=== PATIENT | female | born 1950 | race Caucasian/White ===

== ENCOUNTER → 2016-07-17 | Outpatient (CLI) | payer OTHER ==
[~2016-07-17] MED LIST: ACET1TAB84 PO; ASPEC325 PO; ASPI-232 PO; B-COTAB18 PO; CHOL1000 PO; COEN1CAP7 PO; EZET10TA63 PO; HYDR12.55 PO; INSDGI SC; LSN40 PO; MULT-506 PO; NOVOLOG SQ; NVLGI SC; PYRI100T2 PO; RXC5 PO; S-AD1TAB6 PO; SPIR50TA2 PO; VITAMIN D PO; [UNRECOGNIZED DRUG - REMARK]
--- NOTE | 2016-07-17 17:07 | MAMMOGRAPHY REPORT ---
BILATERAL DIGITAL SCREENING MAMMOGRAM WITH CAD: 07/17/2016 CLINICAL HISTORY: Routine screening. Patient has no complaints. TECHNIQUE: Bilateral CC, MLO, repeat MLO views and exaggerated lateral views were obtained. Current study was also evaluated with a Computer Aided Detection (CAD) system. COMPARISON: Comparison is made to exams dated: 08/30/2013 mammogram - [facility] a nd 05/11/2008. BREAST COMPOSITION: There are scattered areas of fibroglandular density in both breasts. FINDINGS: No suspicious mass, architectural distortion or cluster of microcalcifications is seen. IMPRESSION: ACR BI-RADS CATEGORY 1: NEGATIVE There is no mammographic evidence of malignancy. A 1 year screening mammogram is recommended. The p atient will receive written notification of the results. Approximately 10% of breast cancers are not detected with mammography. A negative mammographic repor t should not delay biopsy if a clinically suggestive mass is present. Florecita Marcos M.D. ay/:07/17/2016 16:13:06 Concrete Handler: Mandy RAMIREZ(Watler)(Randall), [facility] letter sent: Normal 1/2 BI-RADS Code: ACR BI-RADS Category 1: Negative
== END | disposition home or self-care (01) ==
LOC: C.MAMM 14:22
PROVIDERS: ATTEND Family Medicine
DX: Z12.31 Encounter for screening mammogram for malignant neoplasm of breast (principal)

== ENCOUNTER → 2016-08-20 | Outpatient (CLI) | payer OTHER ==
[2016-08-20 12:27] LABS: BLOOD UREA NITROGEN 16 mg/dl (7-18); GLUCOSE 125 mg/dl (70-99)
[2016-08-20 12:28] LABS: ALT/SGPT 30 U/L (12-78); BUN/CREATININE RATIO 18.8 (10-20); CALCIUM 9.2 mg/dl (8.5-10.1); CARBON DIOXIDE 27 mmol/L (21-32); CHLORIDE 101 mmol/L (98-107); CHOLESTEROL 240 mg/dl (0-200); CREATININE 0.83 mg/dl (0.60-1.20); POTASSIUM 3.8 mmol/L (3.5-5.1); SODIUM 137 mmol/L (136-145); TRIGLYCERIDES 145 mg/dl (0-150); VERY LOW DENSITY LIPOPROT CALC 29 mg/dl
[2016-08-20 12:30] LABS: ALB/GLOB RATIO 1.2 (0.9-2); ALKALINE PHOSPHATASE 84 U/L (45-117); AST/SGOT 23 U/L (15-37); CHOLESTEROL/HDL RATIO 6.2; HDL CHOLESTEROL 39 mg/dl; LDL CHOLESTEROL CALCULATED 172 mg/dl
[2016-08-20 12:38] LABS: ESTIMATED AVERAGE GLUCOSE 157 mg/dl; HA1C FLAG Normal (Normal)
[2016-08-20 13:05] LABS: RATIO 23.2 mcg/mg (0-30.0)
--- NOTE | 2016-08-29 12:16 | CODING QUERY MEDICAL NECESSITY ---
SUPPORTING DIAGNOSIS NEEDED A supporting diagnosis is required for the test/procedure performed on this patient in order for us to be reimbursed by the patient's insurance. Please provide a supporting diagnosis for the following test/procedure listed below next to the test name along with your signature. *If there is no additional diagnosis for this patient that would support the following test/procedure please document that below next to the test/procedure. Test(s)/Procedure(s) that require a supporting diagnosis: * GLYCATED HEMOGLOBIN DIAGNOSIS: * DOS: 08/20/16 Provider Signature: Date: Thank you Sanjana Richter Health Information Management Once completed, please kindly fax back to [phone] For questions please call [phone]
== END | disposition home or self-care (01) ==
LOC: C.LABPVFM 08:10
PROVIDERS: ATTEND Family Medicine
DX: I10 Essential (primary) hypertension (principal); E78.5 Hyperlipidemia, unspecified; E55.9 Vitamin D deficiency, unspecified; E11.49 Type 2 diabetes mellitus with other diabetic neurological complication

== ENCOUNTER → 2016-10-25 | Outpatient (CLI) | payer OTHER ==
[~2016-10-25] VITALS: Ht 165.1 cm; Wt 133.2 kg
[2016-10-25 16:14] VITALS: BP 136/76; PULSE 79; Ht 165.1 cm; Wt 133.2 kg
== END | disposition home or self-care (01) ==
LOC: C.NEUR 14:54
PROVIDERS: ATTEND Physician Assistant
DX: G47.33 Obstructive sleep apnea (adult) (pediatric) (principal); E66.01 Morbid (severe) obesity due to excess calories

== ENCOUNTER → 2016-11-11 | Outpatient (CLI) | payer OTHER | END | disposition home or self-care (01) | LOC: C.LABSPEC 17:11 | PROVIDERS: ATTEND Nurse Practitioner Family | DX: N39.41 Urge incontinence (principal) ==

== ENCOUNTER → 2016-12-27 | Outpatient (CLI) | payer OTHER ==
[~2016-12-27] MED LIST changes: -SPIR50TA2 PO
[2016-12-27 12:59] LABS: ESTIMATED AVERAGE GLUCOSE 174 mg/dl; HA1C FLAG Normal (Normal)
== END | disposition home or self-care (01) ==
LOC: C.LABPVFM 08:17
PROVIDERS: ATTEND Nurse Practitioner Family
DX: E11.49 Type 2 diabetes mellitus with other diabetic neurological complication (principal)

== ENCOUNTER 2017-01-10 06:37 | Inpatient (IN) | payer OTHER ==
[2016-12-31 10:52] VITALS: BMI 48.0
--- NOTE | 2016-12-31 11:23 | PAT Medication Instructions ---
Service Date Dec 31, 2016. Current Home Medication List Aspirin (Aspir-81), 1 TAB PO QAM B-Complex Vitamins (Vitamin B Complex), 1 TAB PO QAM Cholecalciferol (Vitamin D3), 1 TAB PO QAM Coenzyme Q10 (Ubidecarenone) (Coq10), 200 MG PO QAM Ezetimibe (Zetia), 10 MG PO HS Hydrochlorothiazide (Hydrochlorothiazide), 12.5 MG PO QAM Insulin Aspart (Novolog), 15 UNITS SC QAM/NOON Insulin Glargine (Lantus), 35 UNITS SC HS Lisinopril (Lisinopril), 40 MG PO QAM Multivitamin (Multivitamin), 2 TAB PO QAM Pyridoxine Hcl (Vitamin B6), 100 MG PO QAM [Novolog], 20 UNITS SQ QPM Medication Instructions For Your Scheduled Surgery - Hold the following medications 2 weeks prior to surgery: Coenzyme Q10 (Ubidecarenone) (Coq10), 200 MG PO QAM - Hold the following medications the morning of surgery: Insulin Aspart (Novolog), 15 UNITS SC QAM/NOON Hydrochlorothiazide (Hydrochlorothiazide), 12.5 MG PO QAM Lisinopril (Lisinopril), 40 MG PO QAM Multivitamin (Multivitamin), 2 TAB PO QAM B-Complex Vitamins (Vitamin B Complex), 1 TAB PO QAM Cholecalciferol (Vitamin D3), 1 TAB PO QAM Pyridoxine Hcl (Vitamin B6), 100 MG PO QAM - Take the following medications the morning of surgery with a sip of water OTHERWISE NOTHING TO EAT OR DRINK AFTER MIDNIGHT: Aspirin (Aspir-81), 1 TAB PO QAM - Take the following medications as scheduled the night before surgery: [Novolog], 20 UNITS SQ QPM Insulin Glargine (Lantus), 39 UNITS SC HS Ezetimibe (Zetia), 10 MG PO HS If you have any questions please call us at [phone] or [phone] or [phone]
[2016-12-31 12:06] LABS: BASO % 0.5 %; BASO ABS # 0.03 K/uL (0-0.2); COMPLETE YES; EOS % 2.4 %; HEMATOCRIT 44.4 % (37-47); IG% 0.3 %; LYMPH ABS # 1.62 K/uL (1.2-3.4); MEAN CELL VOLUME 90.1 fL (80-100); MEAN CORPUSCULAR HEMOGLOBIN 29.4 pg (25-34); MEAN CORPUSCULAR HGB CONC 32.7 g/dl (32-36); MEAN PLATELET VOLUME 11.4 fL (7.4-10.4); MONO % 11.9 %; NEUT % 58.9 %; PLATELET COUNT 200 K/uL (130-400); RED BLOOD COUNT 4.93 M/uL (4.2-5.4); WHITE BLOOD COUNT 6.22 K/uL (4.8-10.8)
--- NOTE | 2016-12-31 12:07 | DIAGNOSTIC IMAGING REPORT ---
CHEST PREADMISSION(PA/LAT) CLINICAL HISTORY: PAT preoperative evaluation COMPARISON STUDY: 05/24/2015 FINDINGS: The bones soft tissues and hemidiaphragms are normal. The cardiomediastinal silhouette is normal. The lungs are clear. The pulmonary vasculature is normal. IMPRESSION: Negative chest. Electronically signed by: Mark Ybarra M.D. 12/31/2016 12:06 PM Dictated Date/Time: 12/31/2016 12:05 PM
[2016-12-31 12:15] LABS: PROTHROMBIN TIME (PATIENT) 10.7 SECONDS (9.0-12.0)
[2016-12-31 15:09] LABS: BUN/CREATININE RATIO 23.6 (10-20); CALCIUM 9.1 mg/dl (8.5-10.1); CREATININE 0.88 mg/dl (0.60-1.20); POTASSIUM 3.6 mmol/L (3.5-5.1)
[2016-12-31 15:21] LABS: URINE APPEARANCE CLEAR (CLEAR); URINE BILIRUBIN NEG (NEG); URINE COLOR DK YELLOW; URINE EPITHELIAL CELL AUTO >30 /lpf (0-5); URINE NITRITE NEG (NEG); URINE PH 6.5 (4.5-7.5); URINE SPECIFIC GRAVITY 1.023 (1.000-1.030); UROBILINOGEN NEG (NEG)
[2016-12-31 15:22] LABS: MANUAL MICROSCOPIC REQUIRED? NO; REVIEW REQ? NO
[~2017-01-10] VITALS: Ht 165.1 cm; Wt 132.0 kg
[~2017-01-10 06:37] MED LIST changes: -ACET1TAB84 PO; +ACETAMINOPHEN 500 MG TAB PO SCH; -ASPEC325 PO; +CEFAZOLIN 3000 MG/65 ML D5W 65 ML IV SCH; +FAMOTIDINE 20 MG TAB PO SCH; +GABAPENTIN 300 MG CAP PO SCH; +LACTATED RINGER'S 1000ML 1,000 ML IV SCH; +LACTATED RINGER'S 1000ML 500 ML IV SCH; +ROPIVACAINE 5MG/ML 30 ML 150 MG, BUPIVACAINE/EPINEPHR 0.5% MPF 30 ML, KETOROLAC TROMETH... INFIL SCH; -RXC5 PO; -VITAMIN D PO; -[UNRECOGNIZED DRUG - REMARK]
[2017-01-10] MEDS ORDERED: LACTATED RINGER'S 1000ML 1,000 ML IV SCH (07:00)
[2017-01-10 07:08] VITALS: BP 181/113; PULSE 75; TEMP 36.6; O2SAT 94; Ht 165.1 cm; Wt 132.0 kg
[2017-01-10] MEDS ORDERED: BUPIVACAINE 0.25% 30 ML VIAL ONE (07:08)
[2017-01-10] MEDS ORDERED: BUPIVACAINE 0.5 % 5 MG/1 ML PF 10ML VIAL ONE (07:08)
[2017-01-10] MEDS ORDERED: ACET1TAB84 PO (07:22)
[2017-01-10] MEDS ORDERED: [UNRECOGNIZED DRUG - REMARK] (07:22)
[2017-01-10] MEDS ORDERED: EpHEDrine SULFATE INJ 50 MG/ML AMP IV PRN (08:00)
[2017-01-10] MEDS ORDERED: ATROPINE SULFATE 0.1 MG/ML 5ML SYR IV PRN (08:00)
[2017-01-10] MEDS ORDERED: FENTANYL CITRATE INJ 50 MCG/1 ML 2 ML VIAL IV PRN (08:00)
[2017-01-10] MEDS ORDERED: ONDANSETRON INJ 2 MG/ML 2 ML VIAL IV PRN ×2 (08:00→12:00)
[2017-01-10] MEDS ORDERED: MIDAZOLAM HCL 1 MG/ML 2ML VIAL ONE (08:24)
[2017-01-10] MEDS ORDERED: FENTANYL CITRATE INJ 50 MCG/1 ML 2 ML VIAL ONE (08:25)
--- NOTE | 2017-01-10 09:27 | History & Physical Bridge Note ---
H&P Re-Evaluation Bridge Note: I have examined the patient, reviewed the History & Physical and in the interval since the performance of the History & Physical I have noted the following changes of clinical significance: No changes noted
--- NOTE | 2017-01-10 09:28 | History and Physical ---
History & Physical Date Jan 10, 2017. Chief Complaint Osteoarthritis Left Knee History of Present Illness The patient is a 66 year old female with complaints of chronic left knee pain Past Medical/Surgical History Medical Problems: (1) Diabetes (2) History of stress echocardiogram (3) Hypertension Additional History Hepatic Disease: No Endocrine Disorder: No Kidney Disease: No Hypertension: No Heart Disease: No Bleeding Tendencies: No Infectious Diseases: No Allergies Coded Allergies: Mirabegron (Verified Allergy, Unknown, CAUSED HTN AND PEDAL EDEMA, 01/10/17 ) Amoxicillin (Verified Adverse Reaction, Unknown, yeast infection, 01/10/17) Home Medications Scheduled Acetaminophen (Tylenol Arthritis Ext Rel), 650 MG PO Q8H Aspirin (Aspir-81), 1 TAB PO QAM B-Complex Vitamins (Vitamin B Complex), 1 TAB PO QAM Cholecalciferol (Vitamin D3), 1 TAB PO QAM Coenzyme Q10 (Ubidecarenone) (Coq10), 200 MG PO QAM Ezetimibe (Zetia), 10 MG PO HS Hydrochlorothiazide (Hydrochlorothiazide), 12.5 MG PO QAM Insulin Aspart (Novolog), 15 UNITS SC QAM/NOON Insulin Glargine (Lantus), 39 UNITS SC HS Lisinopril (Lisinopril), 40 MG PO QAM Multivitamin (Multivitamin), 2 TAB PO QAM Pyridoxine Hcl (Vitamin B6), 100 MG PO QAM S-Adenosylmethionine (Jose Maria E), 800 MG PO QAM [Novolog], 20 UNITS SQ QPM [fiber pills], prn Physical Examination Skin: warm/dry, no rash Eyes: normal inspection, EOMI, sclerae normal ENT: normal ENT inspection, pharynx normal Head: normocephalic, atraumatic Neck: supple, no adenopathy, trachea midline Respiratory/Chest: lungs clear, normal breath sounds, no respiratory distress Cardiovascular: regular rate, rhythm, no edema, no murmur Abdomen / GI: normal bowel sounds, non tender Back: normal inspection Extremities: normal inspection, normal range of motion Neurologic/Psych: no motor/sensory deficits, alert, normal reflexes, oriented x 3 Diagnosis Osteoarthritis Left Knee Plan of Treatment Left total knee
[2017-01-10] MEDS: TRANEXAMIC ACID INJ 1,000 MG in SODIUM CHLORIDE 0.9% 100ML 100 ML IV SCH ×2 (09:38→13:23)
[2017-01-10] MEDS ORDERED: ORTHO JOINT ANESTHETIC ONE (09:40)
[2017-01-10] MEDS ORDERED: BACITRACIN 50000 UNIT VIAL ONE (09:40)
[2017-01-10] MEDS ORDERED: PROPOFOL IV EMULSION 10 MG/ML 20 ML VIAL IV ONE (10:29)
[2017-01-10] MEDS ORDERED: LIDOCAINE HCL 2% 2 ML VIAL (20MG/ML) ONE (10:29)
[2017-01-10] MEDS ORDERED: LABETALOL HCL IV 5 MG/ML 20ML IV ONE (10:29)
--- NOTE | 2017-01-10 11:48 | [facility] Post Operative Brief Note ---
Immediate Operative Summary Operative Date Jan 10, 2017. Pre-Operative Diagnosis left knee osteoarthritis Post-Operative Diagnosis left knee osteoarthritis Procedure(s) Performed Left Total Knee Arthroplasty Surgeon Dr. Aric Maki Ethylbenzene Cracking Supervisor Surgeon(s) Lg Black PA-C Estimated Blood Loss 20ML Findings as above Specimens A. Left Knee Bone and Tissue Complication(s) None Disposition Recovery Room / PACU
[2017-01-10] MEDS ORDERED: MAGNESIUM HYDROXIDE SUSP 30 ML UDC PO PRN (12:00)
[2017-01-10] MEDS ORDERED: CLINDAMYCIN IV 600 MG in DEXTROSE 5% 50ML 50 ML IV SCH (12:00)
[2017-01-10] MEDS ORDERED: METOCLOPRAMIDE HCL INJ 5 MG/ML 2 ML VIAL IV PRN (12:00)
[2017-01-10] MEDS ORDERED: BISACODYL 10 MG SUPP PR PRN (12:00)
[2017-01-10] MEDS ORDERED: MoRPHine SULFATE 2 MG/ML CARP IV PRN (12:00)
[2017-01-10] MEDS ORDERED: GLUCAGON FOR INJ 1 MG VIAL SQ PRN (12:00)
[2017-01-10] MEDS ORDERED: GLUCOSE 40% GEL 15 GM TUBE PO PRN (12:00)
[2017-01-10] MEDS ORDERED: SOD PHOSPHATE/SOD BIPHOSPHATE ENEMA 132 ML BTL PR PRN (12:00)
[2017-01-10] MEDS ORDERED: SILVER SULFADIAZINE 1% CR 50 GM JAR EXT PRN (12:00)
[2017-01-10] MEDS ORDERED: GLUCOSE 10 TABS/TUBE PO PRN (12:00)
[2017-01-10] MEDS ORDERED: DEXTROSE 50% 50 ML SYR IV PRN (12:00)
[2017-01-10] MEDS ORDERED: PHARMACY GLYCEMIC MGMT CONSULT PRN (12:15)
--- NOTE | 2017-01-10 12:43 | Anesthesiology Progress Note ---
Anesthesia Post Op Note Date & Time Jan 10, 2017 at 12:42 Vital Signs Pain Intensity: 0 Vital Signs Past 12 Hours Date Time Temp Pulse Resp B/P (MAP) Pulse Ox O2 Delivery O2 Flow Rate FiO2 01/10/17 12:37 54 16 100 01/10/17 12:37 53 16 01/10/17 12:36 128/68 01/10/17 12:32 54 19 01/10/17 12:32 53 19 100 01/10/17 12:31 103/63 01/10/17 12:27 53 14 100 01/10/17 12:27 52 14 01/10/17 12:26 120/63 01/10/17 12:22 58 15 01/10/17 12:22 58 15 100 01/10/17 12:21 111/65 01/10/17 12:19 57 15 100 01/10/17 12:19 54 15 01/10/17 12:16 105/66 01/10/17 12:14 58 16 100 01/10/17 12:14 57 16 01/10/17 12:13 53 17 01/10/17 12:13 53 17 100 01/10/17 12:11 140/66 01/10/17 12:08 53 14 01/10/17 12:08 52 14 100 01/10/17 12:06 130/66 01/10/17 12:03 56 20 100 01/10/17 12:03 56 20 01/10/17 12:01 128/64 01/10/17 11:58 11 01/10/17 11:58 11 121/72 01/10/17 11:58 36.2 57 16 121/72 99 Mask 10 01/10/17 07:08 36.6 75 18 181/113 94 Room Air Notes Mental Status: alert / awake / arousable, participated in evaluation Pt Amnestic to Procedure: Yes Nausea / Vomiting: adequately controlled Pain: adequately controlled Airway Patency, RR, SpO2: stable & adequate BP & HR: stable & adequate Hydration State: stable & adequate Neuraxial Anesthesia: was administered, sensory block is resolving Anesthetic Complications: no major complications apparent
--- NOTE | 2017-01-10 12:45 | DIAGNOSTIC IMAGING REPORT ---
LEFT KNEE 1 OR 2 VIEWS ROUTINE CLINICAL HISTORY: AP/LATERAL IN PACU LEFT KNEE postoperative evaluation COMPARISON: None. DISCUSSION: Total left knee replacement. Good contact between prosthetic and underlying bone. Surgical drains in position. Expected postoperative soft tissue change. IMPRESSION: Anatomic alignment status post total left knee replacement The above report was generated using voice recognition software. It may contain grammatical, syntax or spelling errors. Electronically signed by: Mark Ybarra M.D. 01/10/2017 12:44 PM Dictated Date/Time: 01/10/2017 12:43 PM
[2017-01-10 13:00] VITALS: BP 132/70; PULSE 56; TEMP 36.4; O2SAT 100
[2017-01-10] MEDS: INSULIN ASPART 100 UNITS/ML 3 ML PEN SC SCH ×3 (13:00→20:56)
[2017-01-10 13:26] VITALS: BP 134/76; PULSE 56; O2SAT 100
--- NOTE | 2017-01-10 13:33 | Pharmacy Progress Note ---
Glycemic Control Intl Consult Date of Service Jan 10, 2017. Scope Glycemic Pharmacist consulted by Dr Maki on 01/10/2017 for glycemic control and to write orders per [facility] inpatient glycemic control protocol Objective Weight (Kilograms): 132.000 Accuchecks BSG (last 24hrs): Test 01/10/17 12:03 Bedside Glucose 126 mg/dl (70-90) HbA1c 7.7% on 12/27/16 Recent Pertinent Medications Outpatient Anti-diabetic Regimen: * Lantus 39 units qHS + Novolog 15 units qAM + noon and 20 units at dinner * A1c = 7.7 % 12/27/16 Risk Factors for Insulin Resistance: * Steroids: dexamethasone 4 mg topically * Recent Surgery: POD 0 for left TKA * Diet: type 2 diabetic diet Assessment & Plan ASSESSMENT: * ADA & AACE recommend a goal blood sugar range 140-180 mg/dl for the majority of critically ill & non-critically ill patients. However, more stringent targets may be selected in individual cases. Will utilize more stringent goal of 110-140 mg/dl based on patient age & comorbidities. Additionally, tighter glycemic control is warranted to facilitate wound healing. * Ms Jung is a 66 y/o F admitted 01/10/17 for a left TKA. She has a PMH of moderately controlled DM and HTN. * As an outpatient, the patient receives a total of 89 units/day with a split of 50/50 basal/bolus. I expect her insulin requirements to remain somewhat stable with only dexamethasone topically. I therefore have continued her Lantus as 40 units. * For bolus insulin I utilized parameters between weight based stress of 2 and weight based stress of 3. These parameters also corresponded to total daily insulin dose of 89 stressed as a 2. As the patient becomes more removed from surgery, these parameters may be loosened. PLAN FOR INPATIENT GLYCEMIC CONTROL: * Basal insulin with LANTUS 40 units SQ HS * Correctional Insulin with NOVOLOG per scale ACHS * Goal Range: Low 110 mg/dL - High 140 mg/dL * Correction Factor: 15 mg/dL/unit * Nutritional / Prandial insulin per carb ratio of 1 unit per 5 grams CHO consumed PLAN FOR DISCHARGE * Patient's A1C appears adequately controlled for her age and co-morbidities. May continue current regimen as long as the patient reports no hypoglycemia. * Please note that the plan above was derived based on current level of insulin resistance and hospital stress. These recommendations are appropriate for inpatient admission only. Plan of care upon discharge will need to be reassessed to avoid potential outpatient hypo/hyperglycemia. Thank you.
[2017-01-10] MEDS: SODIUM CHLORIDE 0.9% 1000ML 1,000 ML IV SCH ×2 (13:55→22:46)
[2017-01-10] MEDS: ACETAMINOPHEN IV 1,000 MG in EMPTY BAG 0 ML IV SCH ×2 (14:05→22:46)
[2017-01-10] MEDS: KETOROLAC TROMETHAMINE 15 MG/ML VIAL IV. SCH ×2 (14:05→20:44)
--- NOTE | 2017-01-10 14:20 | OPERATIVE REPORT ---
DATE OF OPERATION: 01/10/2017 PREOPERATIVE DIAGNOSIS: Primary osteoarthritis of the left knee. POSTOPERATIVE DIAGNOSIS: Same. PROCEDURE: Left total knee arthroplasty. SURGEON: Dr. Aric Maki. CORRECTIONAL GUARD: Carlton Black PA-C, whose assistance was necessary for retraction and positioning of the knee. ANESTHESIA: Spinal with a left adductor nerve block. COMPLICATIONS: None. CONDITION: Stable to PACU. IMPLANTS USED: I used a Biomet Vanguard left total knee arthroplasty with a 67.5 left femur, 71 tibia, a 31 x 8 patella and a size 10 posterior stabilized poly. All components were cemented with Palacos-G cement. INDICATIONS: Liz is a pleasant 66-year-old female who presented to my office with chronic left knee pain. X-rays and clinical examination were diagnostic for primary osteoarthritis of the left knee. After failing conservative treatment, she elected to undergo a left total knee arthroplasty. OPERATION AND FINDINGS: On 01/10/2017 she arrived at [facility] for the above procedure. She was seen in the preoperative holding area and the operative extremity was identified and signed. She was given an adductor nerve block and a spinal anesthetic. She was given a preoperative antibiotic and TXA. She was taken back to the operating room, laid on the table in supine position and given basic sedation. The left knee was prepped and draped in sterile fashion. Time-out was done and the patient and operative extremity was properly identified. A midline incision was made directly over the patella. Dissection was taken down to the extensor mechanism and a medial parapatellar arthrotomy was used. The medial retinaculum was released, the fat pad was left intact and the superior synovium was released. The ACL, PCL and meniscus were removed. A drill was sent down the center of the femoral canal followed by an intramedullary leo. Off that leo a distal femoral cutting guide was placed. A 12 mm was resected off the distal femur at 5 degrees of valgus. A posterior referencing guide was used to measure the end of the femur and the femur measured to be a size 67.5. Two drill holes were placed in 3 degrees of external rotation. A 4-in-1 cutting block was placed. Anterior, posterior and chamfer cuts were then made. A box cutting guide was used to resect the box for the posterior stabilizing component. The proximal tibia was then exposed. A drill was sent down the center of the tibial canal followed by an intramedullary leo. Off that leo was a proximal tibial resection guide was placed and 2 mm was resected off the low medial side. The tibia measured to be a size 71. It was set in the appropriate rotation and then punched. Trial components were placed. The knee was brought through a full range of motion and felt to be stable. The patella was then everted and 8 mm was resected off the posterior aspect of the patella. The patella measured to be a size 31 and 3 peg drill holes were placed. Trial components were removed. The knee was then irrigated, surrounding soft tissues were injected with 100 mL orthopedic pain control cocktail. The final components were then cemented in place with Palacos-G cement. A size 10 posterior stabilized bearing seemed to give the best fit. The final bearing was then placed. Once cement had hardened the anterior bar was locked. The knee was irrigated with a total of 3 liters of normal saline solution bacitracin. Two drains were placed. The extensor mechanism was closed with #2 FiberWire suture in the superior medial aspect and #1 Vicryl, both proximally and distally. The skin was then closed with 2-0 Vicryl and 3-0 V-Loc suture and raffi. She was then placed in a soft compressive dressing and taken to the postanesthesia care unit in stable condition. She tolerated the procedure well. I attest to the content of the Intraoperative Record and any orders documented therein. Any exception s are noted below.
[2017-01-10 15:22] VITALS: BP 129/74; PULSE 64; TEMP 36.5; O2SAT 97
[2017-01-10 16:08] VITALS: BP 129/74; PULSE 61; TEMP 36.6; O2SAT 99
[2017-01-10] MEDS: CEFAZOLIN IV 2,000 MG in DEXTROSE 5% 50ML 50 ML IV SCH (17:01)
[2017-01-10 19:52] VITALS: BP 131/78; PULSE 68; TEMP 36.5; O2SAT 97
[2017-01-10] MEDS: ASPIRIN 325 MG ECTAB PO SCH (20:49)
[2017-01-10] MEDS: DOCUSATE SODIUM 100 MG CAP PO SCH (20:50)
[2017-01-10] MEDS: SENNA 8.6 MG TAB PO SCH (20:50)
[2017-01-10] MEDS: EZETIMIBE 10MG TAB PO SCH (20:51)
[2017-01-10] MEDS: INSULIN GLARGINE SOLOSTAR 100 UNITS/ML 3 ML PEN SC SCH (20:57)
[2017-01-11] VITALS (7 sets, daily range): BP systolic 123–167; BP diastolic 67–81; PULSE 65–80; TEMP 36.7–37.2; O2SAT 93–96
[2017-01-11] MEDS: CEFAZOLIN IV 2,000 MG in DEXTROSE 5% 50ML 50 ML IV SCH (00:20)
[2017-01-11] MEDS: KETOROLAC TROMETHAMINE 15 MG/ML VIAL IV. SCH ×4 (01:43→20:28)
[2017-01-11] MEDS: INSULIN ASPART 100 UNITS/ML 3 ML PEN SC SCH ×6 (04:00→21:13)
[2017-01-11] MEDS: ACETAMINOPHEN IV 1,000 MG in EMPTY BAG 0 ML IV SCH ×3 (05:06→21:07)
[2017-01-11 06:26] LABS: HEMATOCRIT 39.5 % (37-47); MEAN CELL VOLUME 89.6 fL (80-100); MEAN CORPUSCULAR HGB CONC 32.4 g/dl (32-36); MEAN PLATELET VOLUME 11.3 fL (7.4-10.4); PLATELET COUNT 179 K/uL (130-400); RED BLOOD COUNT 4.41 M/uL (4.2-5.4)
[2017-01-11 06:56] LABS: BUN/CREATININE RATIO 25.8 (10-20); CALCIUM 8.7 mg/dl (8.5-10.1); CREATININE 0.91 mg/dl (0.60-1.20); POTASSIUM 3.6 mmol/L (3.5-5.1)
[2017-01-11] MEDS: SODIUM CHLORIDE 0.9% 1000ML 1,000 ML IV SCH (07:17)
[2017-01-11] MEDS: DOCUSATE SODIUM 100 MG CAP PO SCH ×2 (08:38→21:03)
[2017-01-11] MEDS: CHOLECALCIFEROL 1000 INTER.UNIT TAB PO SCH (08:38)
[2017-01-11] MEDS: MULTIVITAMIN TAB PO SCH (08:39)
[2017-01-11] MEDS: HYDROCHLOROTHIAZIDE 25 MG TAB PO SCH (08:39)
[2017-01-11] MEDS: VITAMIN B COMPLEX TAB PO SCH (08:39)
[2017-01-11] MEDS: PANTOprazole SOD 40 MG TAB PO SCH (08:39)
[2017-01-11] MEDS: PYRIDOXINE HCL 50 MG TAB PO SCH (08:39)
[2017-01-11] MEDS: ASPIRIN 325 MG ECTAB PO SCH ×2 (08:40→21:03)
[2017-01-11] MEDS: LISINOPRIL 40 MG TAB PO SCH (08:40)
[2017-01-11] MEDS: OXYCODONE HCL IR 5 MG TAB (IMMEDIATE RELEASE) PO PRN ×3 (08:48→18:29)
[2017-01-11] MEDS ORDERED: MULTIVITAMIN TAB PO SCH (09:00)
[2017-01-11] MEDS ORDERED: NON-FORMULARY MEDICATION (Coenzyme Q10 (Ubidecarenone) (Coq10) 200 MG) PO SCH (09:00)
--- NOTE | 2017-01-11 09:51 | PROGRESS NOTE ---
DATE: 01/11/2017 DATE: 01/11/2017. CHIEF COMPLAINT: Status post left total knee arthroplasty postop day #1. PROGRESS: Liz was seen and examined at bedside today. Overall, she is doing very well. She has some soreness in her knee but it is not too bad. She has been up and ambulating and has no complaints. PHYSICAL EXAMINATION: LEFT KNEE: The dressing is clean and dry and the drain is to suction. She has active dorsiflexion and plantarflexion of her left ankle and sensation is intact. LABORATORY DATA: She has an H&H today of 12.8 and 39.5. Her glucose is 117. Her vital signs are all stable on room air. She is voiding on her own. X-rays postoperatively of the left knee showed the prosthesis to be in anatomic alignment without any evidence of fracture, dislocation or loosening. IMPRESSION: Status post left total knee arthroplasty postop day #1. PLAN: At this point, she is doing very well and happy with her progress. Will continue the oxycodone for pain control and aspirin for DVT prophylaxis. She will work with therapy today. Tomorrow the nursing staff can change the dressing and pull the drain and then we will discharge her to home.
--- NOTE | 2017-01-11 12:06 | Pharmacy Progress Note ---
Glycemic Control Progress Note Date of Service Jan 11, 2017. Scope Glycemic Pharmacist consulted for glycemic control to write orders per [facility] inpatient glycemic control protocol. Objective Accuchecks BSG (last 24hrs): Test 01/10/17 12:03 01/10/17 17:02 01/10/17 20:39 01/11/17 00:18 Bedside Glucose 126 mg/dl (70-90) 209 mg/dl (70-90) 214 mg/dl (70-90) 131 mg/dl (70-90) Test 01/11/17 04:02 01/11/17 05:04 01/11/17 07:56 Bedside Glucose 109 mg/dl (70-90) 117 mg/dl (70-90) Random Glucose 97 mg/dl (70-99) Recent Pertinent Medications Outpatient Anti-diabetic Regimen: * Lantus 39 units qHS + Novolog 15 units qAM + noon and 20 units at dinner * A1c = 7.7 % 12/27/16 Risk Factors for Insulin Resistance: * Steroids: dexamethasone 4 mg topically * Recent Surgery: POD 1 for left TKA * Diet: type 2 diabetic diet Outpatient Anti-Diabetic Meds Please see above Assessment & Plan ASSESSMENT: * ADA & AACE recommend a goal blood sugar range 140-180 mg/dl for the majority of critically ill & non-critically ill patients. However, more stringent targets may be selected in individual cases. Will utilize more stringent goal of 110-140 mg/dl based on patient age & comorbidities. Additionally, tighter glycemic control is warranted to facilitate wound healing. * Ms Jung is a 66 y/o F admitted 01/10/17 for a left TKA. She has a PMH of moderately controlled DM and HTN. * As an outpatient, the patient receives a total of 89 units/day with a split of 50/50 basal/bolus. Yesterday, the patient received about 76 units (40 units of basal and 36 units of bolus). Her blood sugars ranged from 123-214 mg/dL. * Today, her fasting blood sugar was 117 mg/dL which was appropriate. I have continued Lantus at 40 units daily. as this appears to maintain an excellent fasting. I expect her insulin requirements to remain somewhat stable with only dexamethasone topically. * For bolus insulin, the patient is 24 hours post dexamethasone topically. I loosened parameters to weight-based stress of 2. PLAN FOR INPATIENT GLYCEMIC CONTROL: * Basal insulin with LANTUS 40 units SQ HS * Correctional Insulin with NOVOLOG per scale ACHS * Goal Range: Low 110 mg/dL - High 140 mg/dL * Correction Factor: 20 mg/dL/unit * Nutritional / Prandial insulin per carb ratio of 1 unit per 6 grams CHO consumed PLAN FOR DISCHARGE * Patient's A1C appears adequately controlled for her age and co-morbidities. May continue current regimen as long as the patient reports no hypoglycemia. * Please note that the plan above was derived based on current level of insulin resistance and hospital stress. These recommendations are appropriate for inpatient admission only. Plan of care upon discharge will need to be reassessed to avoid potential outpatient hypo/hyperglycemia. Thank you.
[2017-01-11] MEDS: SENNA 8.6 MG TAB PO SCH (21:03)
[2017-01-11] MEDS: EZETIMIBE 10MG TAB PO SCH (21:03)
[2017-01-11] MEDS: INSULIN GLARGINE SOLOSTAR 100 UNITS/ML 3 ML PEN SC SCH (21:14)
[2017-01-12] MEDS: KETOROLAC TROMETHAMINE 15 MG/ML VIAL IV. SCH ×2 (01:41→08:09)
[2017-01-12] MEDS: ACETAMINOPHEN IV 1,000 MG in EMPTY BAG 0 ML IV SCH (05:49)
[2017-01-12 06:14] VITALS: BP 175/82; PULSE 78; TEMP 37.2; O2SAT 95
[2017-01-12 06:40] VITALS: BP 160/80
[2017-01-12] MEDS: ASPIRIN 325 MG ECTAB PO SCH (08:10)
[2017-01-12] MEDS: DOCUSATE SODIUM 100 MG CAP PO SCH (08:10)
[2017-01-12] MEDS ORDERED: RXC5 PO (08:11)
[2017-01-12] MEDS: HYDROCHLOROTHIAZIDE 25 MG TAB PO SCH (08:11)
[2017-01-12] MEDS ORDERED: ASPEC325 PO (08:11)
[2017-01-12] MEDS: PANTOprazole SOD 40 MG TAB PO SCH (08:11)
[2017-01-12] MEDS: PYRIDOXINE HCL 50 MG TAB PO SCH (08:12)
[2017-01-12] MEDS: VITAMIN B COMPLEX TAB PO SCH (08:12)
--- NOTE | 2017-01-12 08:12 | Discharge Instructions ---
Discharge Instructions Date of Service Jan 12, 2017. Admission Reason for Admission: Osteoarthritis Left Knee Discharge Discharge Diagnosis / Problem: Left total knee Discharge Goals Goal(s): Decrease discomfort, Improve function Activity Recommendations Activity Limitations: as noted below . Instructions / Follow-Up Instructions / Follow-Up Activity and Therapy Recommendations: * If you are using [facility] then Physical Therapy will be provided until they feel you are ready to start Outpatient Physical Therapy. If you are not using a Home Health agency then Outpatient Physical Therapy should start about 3-5 days from your day of surgery. Therapy will last about 6-10 weeks * It is important not to put a pillow under your knee when you are relaxing or sleeping. It is just as important to make sure you are getting your knee perfectly straight as it is to regain your knee bend. * You were shown a series of exercises in the hospital. Do these exercises three times each day including the exercises you were shown in physical therapy. * Get up and walk several times each day. For the first four weeks, try not to stand or walk for more than one hour at a time. If you do stand or walk for more than one hour, you will not hurt anything, but your leg will likely swell. * As you feel comfortable, you may change from the walker or crutches to a cane and then to independent walking. Medications: * Narcotic You will likely be sent home from the hospital with a prescription for the narcotic pain medication that worked best throughout your stay. * Aspirin Most patients will be required to take Aspirin 325mg twice a day for 6 weeks after surgery. This is obtained [id number] and a prescription is not necessary. * Other medications may be prescribed for specific circumstances. If you have any questions, please call the office at . * Resume previous home medications unless otherwise instructed TEDs/Elastic Stockings: The white elastic stockings help limit swelling and prevent blood clots from forming in your legs.~ The more you wear them, the more they work. Wear them for six weeks. Showering: You may shower 5 days from the day of surgery. Let the soapy shower water run over the raffi. Do not scrub or soak the incision. Things To Watch For: * Drainage from the incision site that occurs more than one week after your surgery. * Increased redness at the incision site. * Fever above 102 degrees Fahrenheit. * Unusual chest pain or shortness of breath. * Call [facility] at with any of the above problems Follow-Up Visit: Follow-up with Dr. Maki 2-3 weeks after your day of surgery. An appointment was probably scheduled when you signed-up for surgery in the office. If you have any questions call Office Instructions: More detailed instructions as well as Frequently Asked Questions were provided in a folder by our office when you signed-up for surgery. Please review these instructions when you get home. If you have any further questions or concerns, please feel free to call the office at [phone] Current Hospital Diet Patient's current hospital diet: Diabetes Type 2 Diet Discharge Diet Recommended Diet: Regular Diet Procedures Procedures Performed: Left Total Knee Arthroplasty Pending Studies Studies pending at discharge: no Laboratory Results Hemoglobin A1c Test 12/27/16 08:25 Range/Units Estimated Average Glucose 174 mg/dl Hemoglobin A1c 7.7 H 4.5-5.6 % Medical Emergencies . Who to Call and When: Medical Emergencies: If at any time you feel your situation is an emergency, please call 911 immediately. . Non-Emergent Contact Non-Emergency issues call your: Surgeon Call Non-Emergent contact if: wound has increased drainage, wound has increased redness . "Provider Documentation" section prepared by Aric Maki. . VTE Core Measure Inpt VTE Proph given/why not?: Other Anticoagulation (Aspirin 325 twice a day for 6 weeks)
[2017-01-12] MEDS: CHOLECALCIFEROL 1000 INTER.UNIT TAB PO SCH (08:13)
[2017-01-12] MEDS: LISINOPRIL 40 MG TAB PO SCH (08:13)
[2017-01-12] MEDS: MULTIVITAMIN TAB PO SCH (08:13)
[2017-01-12] MEDS: INSULIN ASPART 100 UNITS/ML 3 ML PEN SC SCH ×2 (08:20→12:41)
[2017-01-12 10:01] VITALS: BP 160/80; PULSE 78; TEMP 37.2; O2SAT 95
--- NOTE | 2017-01-12 12:39 | PROGRESS NOTE ---
DATE: 01/12/2017 CHIEF COMPLAINT: Status post left total knee arthroplasty, postop day #2. PROGRESS: Liz was seen and examined at bedside today. Overall, she is doing fairly well. She was having some soreness in her knee, but no other complaints. She is passing gas and has not had a bowel movement yet, is working well with physical therapy. PHYSICAL EXAMINATION: LEFT KNEE: The knee is out in full extension. Her dressing has been changed. The drain has been pulled. She is neurovascularly intact. IMPRESSION: Status post left total knee arthroplasty, postop day #2. PLAN: At this point, she is doing well and happy with her progress. We will continue the oxycodone for pain control. She will get more physical therapy this morning and we will discharge her to home later this morning with [facility] health.
[2017-01-12] MEDS: OXYCODONE HCL IR 5 MG TAB (IMMEDIATE RELEASE) PO PRN (12:43)
--- NOTE | 2017-01-12 15:39 | DISCHARGE SUMMARY ---
DISCHARGE DIAGNOSIS: Primary osteoarthritis of the left knee. PROCEDURE: Left total knee arthroplasty on 01/10/[address] Aric Maki. DISCHARGE INSTRUCTIONS: 1. Tylenol 650 mg every 8 hours as needed. 2. Oxycodone 5-10 mg every 4 hours as needed for pain. 3. Aspirin 325 mg twice a day for 6 weeks for DVT prophylaxis. 4. Zetia 10 mg at night. 5. Hydrochlorothiazide 12.5 mg daily. 6. NovoLog insulin 15 units in the morning. 7. Lantus 39 units in the evening. 8. Lisinopril 40 mg daily. 9. NovoLog 20 units in the evening. HOSPITAL COURSE: Liz is a pleasant 66-year-old female who presented to my office with chronic left knee pain. X-rays and clinical examination were diagnostic for primary osteoarthritis of the left knee. After failing conservative treatment, she elected to undergo a left total knee arthroplasty. On 01/10/2017, she arrived at [facility] and underwent a left knee replacement without complications. She had a spinal anesthetic and a left adductor nerve block. Postoperatively, she was started on aspirin 325 mg twice a day for DVT prophylaxis and discharged to general orthopedic floors. Her hospital course was uneventful. On postop day #1, her H&H was stable at 12.8 and 39.5. She was able to work well with physical therapy. She was having some pain in her knee, but it was controlled with the oxycodone. On postop day #2, she continued to do well. The dressing was changed and the drain was pulled. She worked well once again with physical therapy and was subsequently discharged to home with [facility] [place] and the above instructions.
== END 2017-01-12 13:03 | disposition home health service (06) | DRG 470 ==
LOC: C.ACU 06:37 → C.3E 07:45 → ENRESERV 12:21
PROVIDERS: ADMIT Orthopaedic Surgery; ATTEND Orthopaedic Surgery
PROC: 0SRD0J9 Replacement of Left Knee Joint with Synthetic Substitute, Cemented, Open Approach (ICD-10-PCS; principal; 2017-01-10 09:00)
DX: M17.12 Unilateral primary osteoarthritis, left knee (principal); Z68.42 Body mass index [BMI] 45.0-49.9, adult; E11.9 Type 2 diabetes mellitus without complications; I10 Essential (primary) hypertension; G47.33 Obstructive sleep apnea (adult) (pediatric); E66.01 Morbid (severe) obesity due to excess calories; E78.00 Pure hypercholesterolemia, unspecified; M21.062 Valgus deformity, not elsewhere classified, left knee; Z79.899 Other long term (current) drug therapy; Z79.82 Long term (current) use of aspirin; Z79.4 Long term (current) use of insulin; Z99.89 Dependence on other enabling machines and devices

== ENCOUNTER → 2017-05-27 | Outpatient (CLI) | payer OTHER ==
[~2017-05-27] MED LIST changes: +ACET1TAB84 PO; -ACETAMINOPHEN 500 MG TAB PO SCH; +ASPEC325 PO; -ASPI-232 PO; -CEFAZOLIN 3000 MG/65 ML D5W 65 ML IV SCH; -FAMOTIDINE 20 MG TAB PO SCH; -GABAPENTIN 300 MG CAP PO SCH; -LACTATED RINGER'S 1000ML 1,000 ML IV SCH; -LACTATED RINGER'S 1000ML 500 ML IV SCH; -ROPIVACAINE 5MG/ML 30 ML 150 MG, BUPIVACAINE/EPINEPHR 0.5% MPF 30 ML, KETOROLAC TROMETH... INFIL SCH; +RXC5 PO; +[UNRECOGNIZED DRUG - REMARK]
--- NOTE | 2017-05-28 06:23 | PAP/PSG TECHNICIAN REPORT ---
[facility] Newsstand Vendor Polysomnogram Report Study name: None Report date: 05/28/2017 Study date: 05/27/2017 Referring Physician: Cher Norman PA-C Name: EMILY MARVIN Interpreting Physician: Bienvenido Kearns M.D. Date of : 1950 Newsstand Vendor: Viridiana Kerns [facility]. Sex: Female Age: 67 Study Type: PSG PAP Weight: 289 lbs 16.5 in Height: 67 years, Height 5' 5" Neck Circum: BMI: 48.09 Medications: COQ-10 200 MG, EZETIMIBE 10 MG, HYDROCHLOROTHIAZIDE 12.5 MG, LANTUS SOLOSTAR 100 UNIT/ML, LISINOPRIL 40 MG, NOVOLOG FLEX PEN 100 UNIT/ML, TOVIAZ 8 MG, VIT D3 2000 UNIT Patient History 67 yr-old female here for a CPAP update study. She has been using CPAP for about two years. She has excellent compliance but has been experiencing continued daytime sleepiness. Her read-outs from her machine show an elevated AHI. She is back to assess pressure settings. Her Bentley scale is 15. The test was started on room air and 4 CMH2O. ETCO2 testing was not utilized during this study. Room 3 Parameters Monitored NPSG: E1-M2, E2-M1, Fp1-M2, Fp2-M1, F3-M2, F4-M2, F4-M1, C3-M2, C4-M2, C4-M1, O1-M2, O2-M2, O2-M1, T3-M2, T4-M1, P3-M2, P4-M1, CHIN1, CHIN2, HR, EKG, Legs, PFLOW, SNOR, FLOW, CFLOW, Tidal Volume, THOR, ABDO, SpO2, PLTH, CPRESS, ETCO2 Wave, ETCO2, pH Sleep Architecture Sleep Stages Time at Lights Off 9:57:55 PM STAGES Time (min.) TST (%) Time at Lights On 5:30:25 AM Wake 69.5 -- Total Recording Time (TRT) 452.50 min. N1 64.5 17 Total Sleep Period (TSP) 443.0 min. N2 263.0 69 Total Sleep Time (TST) 383.0min. N3 6.5 2 Awake Time 69.5 min. REM 49.0 13 Wake after Sleep Onset 60.5 min. Sleep Efficiency (SE) 85 % Sleep Onset Latency (MARICARMEN) 9.0 min. Number of Stage 1 Shifts None Awakenings 15 Stage Changes 116 Number of REM periods 5 REM 49.0 13 REM Latency 79.0 min. NREM 334.0 87 Body Position Analysis Supine Right Left Side Prone Vertical Total Sleep Time (min.) 242.9 0.0 39.0 39.00 145.1 0.0 Total Sleep Time (%) 55% 0% 10% 10 35% N/A% Total Sleep Time REM (min.) 30.5 0.0 0.0 None 18.5 0.0 Total Sleep Time NREM (min.) 179.0 0.0 39.0 None 116.0 0.0 Intermittent Wake (min.) 33.4 0.0 25.5 None 10.6 0.0 Total Sleep Period (%) 53% None None None None None Arousals Myoclonus (PLM) * Events Count Index Events Count Index Spontaneous 17 3 Events Awake (PLMW) 107 92.4 Respiratory 39 6.3 Events Asleep w/ Arousal (PLMA) 53 8.3 PLM 52 8 Events Asleep w/o Arousal (PLMS) 184 28.8 Snoring 12 2 Total Asleep 237 37.1 Total 120 19 Total 344 46 Respiratory Analysis * CA OA MA CH H RERA Total Count 0 8 0 0 82 10 90 Index 0.0 1.3 0.0 0 12.8 2 15.7 Mean Duration 0.0 15.9 0.0 0.00 16.9 18.4 17.0 Longest Duration 0.0 27.3 0.0 0.00 0.0 22.9 27.3 Respiratory Event Summary Total Supine ~Supine Right Left Prone REM NREM Apneas Count 8 5 3 N/A 1 2 3 5 Index 1.3 1 1 N/A 1.5 1 4 1 Hypopneas (4% Desat) Count 82 51 31 N/A 20 11 12 70 Index 12.8 14.6 11 N/A 30.8 4.9 14.7 12.6 Apneas & All Hypopneas Count 90 56 34 N/A 21 13 15 75 Index 14.1 16 12 N/A 32 6 18.4 13.5 Respiratory Events ([employer]+All Hyp+RERA) Count 90 60 40 N/A 25 15 15 75 Index 15.7 17 14 N/A 38.5 6.7 18.4 15.3 Respiratory Related Arousal Count 39 60 18 N/A 12 6 1 39 Index 6.3 6 6 N/A 18 3 1 7 Snoring Analysis Supine Right Left Prone REM NREM Total Snore duration 60.2 min Snores count 1,717 N/A 383 659 132 2,627 2,759 Snore mean duration 1.3 Sec Snores index 492 N/A 589 294 161.6 471.9 432.2 TST with snoring (%) 15.7% Desaturation Event Summary: Minimum %SpO2 Event Count Mean/Min/Max Duration(sec.) Desaturation Index % Time In Bed > 90 148 27.0 / 6.0 / 58.8 30.6 65.5 86 - 90 47 22.0 / 7.5 / 58.3 18.9 33.6 81 - 85 1 12.3 / 12.3 / 12.3 15.4 0.9 76 - 80 0 N/A 0.0 0.0 71 - 75 0 N/A 0.0 0.0 66 - 70 0 N/A 0.0 0.0 61 - 65 0 N/A 0.0 0.0 56 - 60 0 N/A 0.0 0.0 51 - 55 0 N/A 0.0 0.0 < 50 0 N/A 0.0 0.0 Total REM NREM Awake <50% 0.0 min. 0.0 min. 0.0 min. 0.0 min. 51 - 60% 0.0 min. 0.0 min. 0.0 min. 0.0 min. 61 - 70% 0.0 min. 0.0 min. 0.0 min. 0.0 min. 71 - 80% 0.0 min. 0.0 min. 0.0 min. 0.0 min. 81 - 90% 153.0 min. 17.6 min. 125.4 min. 10.0 min. 91 - 100% 290.2 min. 31.4 min. 208.3 min. 50.5 min. Average 91 91 91 92 Minimum SpO2 81 81 82 87 Desaturation Event Index 21.3 25.7 22.5 12.9 # Desat. Events below 89% 98 17 79 2 Time(%) with Saturation below 89% 9.2 1.6 7.5 0.1 Time(min.) with Saturation below 89% 40.8 7.1 33.4 0.3 Time (mins) REM (mins) NREM (mins) % of TST SpO2 Below 90% 139 21 N118 19.8 SpO2 Below 88% 42 0 0 5 Heart Rate Analysis Min (bpm) Max (bpm) Average (bpm) Awake 55 78 66 NREM 52 74 61 REM 52 70 60 Overall 52 74 61 Supplemental O2 Values Minimum O2 level: None Value Start Time End Time Newsstand Vendor Comments Ms. Marvin slept in the left, supine, and prone positions. Cardiac arrhythmias were noted (please refer to the printouts). PLMs were noted. No bruxism noted. CPAP was initiated at +4 CMH2O and up-titrated to a level of +14 CMH2O, Cflex 2. She continued to have respiratory events. She was then switched over to BiPAP to due to reaching high pressures. BiPAP was initiated at +16/12 CMH2O and up-titrated to a level of +17/12 BiFlex 2. A Quattro Air full face mask size small from [employer] was used during titration She awoke to use the restroom one time during the night. Ms. Marvin stated that she slept well. The final report will be interpreted and signed by a sleep physician. The completed physician report will then be placed in the patient medical record. Therapy Event: Therapy (cm H20) 4 5 6 8 10 12 14 16/12 17/12 Total Time at Pressure (min.) 16.2 27.4 80.0 15.1 85.2 46.6 44.8 44.1 93.1 TST at Pressure (min.) 6.7 15.4 76.0 13.1 80.7 27.1 41.8 44.1 78.1 # Periods 1 1 1 1 1 1 1 1 1 Sleep Onset (min.) 9.0 0.0 0.0 0.0 0.0 0.0 0.0 0.0 0.0 REM Onset (min.) N/A N/A 44.4 N/A 49.3 N/A N/A 6.7 79.6 Sleep Efficiency % 41 56 95 86 94 58 93 100 83 Wakefulness (%) 58.5 43.8 5.0 13.3 5.3 41.9 6.7 0.0 16.1 Wakefulness (min.) 9.5 12.0 4.0 2.0 4.5 19.5 3.0 0.0 15.0 NREM 1 (%) 18.5 5.5 4.6 45.5 11.7 20.3 19.6 23.2 11.8 NREM 1 (min.) 3.0 1.5 3.7 6.8 10.0 9.5 8.8 10.2 11.0 NREM 2 (%) 23.0 50.7 71.7 41.2 62.4 37.8 73.7 41.7 64.0 NREM 2 (min.) 3.7 13.9 57.4 6.2 53.2 17.6 33.0 18.4 59.6 NREM 3 (%) 0.0 0.0 0.0 0.0 7.6 0.0 0.0 0.0 0.0 NREM 3 (min.) 0.0 0.0 0.0 0.0 6.5 0.0 0.0 0.0 0.0 REM (%) 0.0 0.0 18.7 0.0 12.9 0.0 0.0 35.1 8.1 REM (min.) 0.0 0.0 15.0 0.0 11.0 0.0 0.0 15.5 7.5 # Arousals 4 2 21 11 24 11 18 13 16 Arousal Index 35.7 7.8 16.6 50.6 17.8 24.4 25.8 17.7 12.3 # Snore 62 240 913 90 701 227 302 16 208 Snore Index 552.9 935.0 720.6 413.6 521.2 503.2 433.5 21.8 159.8 AHI 44.6 3.9 23.7 36.8 10.4 33.2 8.6 9.5 3.1 AHI Supine 44.6 3.9 23.7 N/A N/A 20.5 8.6 9.5 0.0 AHI Non-Supine N/A N/A 0.0 36.8 10.4 72.8 N/A N/A 3.3 NREM AHI 44.6 3.9 19.7 36.8 10.3 33.2 8.6 8.4 3.4 REM AHI N/A N/A 40.0 N/A 10.9 N/A N/A 11.6 0.0 RDI 44.6 3.9 23.7 55.2 11.9 35.5 11.5 10.9 3.1 # Obstructive 2 0 1 0 0 1 0 2 2 # Central Ap 0 0 0 0 0 0 0 0 0 # Mixed 0 0 0 0 0 0 0 0 0 # Hypopneas 3 1 29 8 14 14 6 5 2 RERAS 0 0 0 4 2 1 2 1 0 Total Respiratory Events 5 1 30 12 16 16 8 8 4 Time Below SpO2 89.00% (min.) 2.0 4.6 17.5 1.7 3.8 7.9 0.6 1.7 0.6 Mean NREM SpO2 (%) 89 90 90 91 91 90 91 91 92 Mean REM SpO2 (%) N/A N/A 90 N/A 90 N/A N/A 91 93 Mean Sleep SpO2 (%) 89 90 90 91 91 90 91 91 92 Min NREM SpO2 (%) 84 84 83 86 86 82 87 83 85 Min REM SpO2 (%) N/A N/A 81 N/A 85 N/A N/A 87 92 Position Supine (min.) 6.7 15.4 75.9 0.0 0.0 20.5 41.8 44.1 5.1 Position Non-supine (min.) 0.0 0.0 0.2 13.1 80.7 6.6 0.0 0.0 73.0 LM Index Sleep 8.9 23.4 46.6 91.9 35.7 39.9 38.8 21.8 32.3 LM Index NREM 8.9 23.4 54.1 91.9 41.3 39.9 38.8 18.9 33.1 LM Index REM N/A N/A 16.0 N/A 0.0 N/A N/A 27.1 24.0 Mean Heart Rate (bpm) 65 64 63 61 61 60 60 60 58 Min Heart Rate (bpm) 60 60 55 54 54 54 54 52 52 CPAP REPORT Therapy Detail Time / Page # Comment CPAP 4 cm H2O Full Face Mask Flex Pressure Relief Humidifier on 9:55:20 PM / pg. 92 CPAP 5 cm H2O Full Face Mask Flex Pressure Relief Humidifier on 10:14:09 PM / pg. 130 INCREASED FOR SNORING CPAP 6 cm H2O Full Face Mask Flex Pressure Relief Humidifier on 10:41:33 PM / pg. 185 INCREASED FOR MORE AUDIBLE SNORING CPAP 8 cm H2O Full Face Mask Flex Pressure Relief Humidifier on 12:01:34 AM / pg. 345 INCREASED FOR HYPOPNEAS AND APNEAS CPAP 10 cm H2O Full Face Mask Flex Pressure Relief Humidifier on 12:16:38 AM / pg. 375 INCREASED FOR HYPOPNEAS CPAP 12 cm H2O Full Face Mask Flex Pressure Relief Humidifier on 1:41:49 AM / pg. 545 INCREASED FOR HYPOPNEAS CPAP 14 cm H2O Full Face Mask Flex Pressure Relief Humidifier on 2:28:23 AM / pg. 638 INCREASED FOR MORE EVENTS BiLevel 16/12 cm H2O Full Face Mask Flex Pressure Relief Humidifier on 3:13:11 AM / pg. 728 HAVING CONTINUED EVENTS. SWITCHING TO BIPAP TO GO INTO HIGHER PRESSURES BiLevel 17/12 cm H2O Full Face Mask Flex Pressure Relief Humidifier on 3:57:18 AM / pg. 816 INCREASED IPAP FOR HYPOPNEAS
--- NOTE | 2017-05-28 10:15 | POLYSOMNOGRAPH REPORT ---
CLINICAL DATA: A 67-year-old female with BMI of 48.1, referred by Cehr Norman and myself for a CPAP update study. She has been using CPAP for 2 years at 14 cm water pressure, but continues to have an elevated AHI and daytime sleepiness. Her [place] sleepiness score is 15/24. SLEEP ARCHITECTURE: Total sleep period was 443 minutes. Total sleep time was 383 minutes divided between 334 minutes of non-REM sleep and 49 minutes of REM sleep. Sleep onset latency was 9 minutes. REM latency was 79 minutes. Sleep efficiency was 85%. Awake after sleep onset was 60.5 minutes. Sleep consisted of stage N1 17%, stage N2 69%, stage N3 2%, and REM 13%. AROUSAL DATA: 120 arousals were recorded for an index of 19 per hour. Fifty were due PLMs events. PLM DATA: 184 limb movements during sleep were noted for an index of 28.8 per hour with arousal index of 8.3 per hour. RESPIRATORY DATA: The AHI was 14.1. The RDI was 15.7. There were 8 obstructive apneic episodes. The longest apneic episode was 27.3 seconds. There were 82 hypopneic episodes. The mean duration of hypopnea was 16.9 seconds. There were 10 RERAs. The longest RERA was 22.9 seconds. OXIMETRY DATA: Nocturnal hypoxemia was seen. Oxygen yelena was 81%. Mean saturation was 91%. Time below 88% was 42 minutes. EKG: Heart rates ranged from 52-74 beats per minute.PVC's were seen occasionally. TREATMENT SUMMARY: The patient slept in the left, supine, and prone positions. A Quattro Air full facemask size small from [employer] was used. She was initially started on CPAP and was titrated to 14 cm of water pressure. However, she continued to have obstructive events and was switched to BiPAP. She was titrated to a final BiPAP level of 17/12, Bi-Flex 2. At that pressure setting, the patient slept for 78 minutes with an AHI of 3.1. IMPRESSION: Obstructive sleep apnea corrected with BiPAP 17/12, Bi-Flex 2. RECOMMENDATIONS: The patient should be switched from CPAP to BIPAP and followed within 90 days to document efficacy and compliance. [facility]
== END | disposition home or self-care (01) ==
LOC: C.NEUR 21:00
PROVIDERS: ATTEND Physician Assistant Medical
DX: G47.33 Obstructive sleep apnea (adult) (pediatric) (principal); E66.01 Morbid (severe) obesity due to excess calories; R53.83 Other fatigue

== ENCOUNTER → 2017-07-11 | Outpatient (CLI) | payer OTHER ==
[2017-07-11 13:16] LABS: ESTIMATED AVERAGE GLUCOSE 163 mg/dl; HA1C FLAG Normal (Normal)
[2017-07-11 13:16] LABS: HEMOGLOBIN A1C 7.3 % (4.5-5.6)
[2017-07-11 14:58] LABS: CHOLESTEROL 183 mg/dl (0-200); CHOLESTEROL/HDL RATIO 4.5; HDL CHOLESTEROL 41 mg/dl; LDL CHOLESTEROL CALCULATED 120 mg/dl; TRIGLYCERIDES 111 mg/dl (0-150); VERY LOW DENSITY LIPOPROT CALC 22 mg/dl
== END | disposition home or self-care (01) ==
LOC: C.LABPVFM 08:08
DX: E11.49 Type 2 diabetes mellitus with other diabetic neurological complication (principal); E78.5 Hyperlipidemia, unspecified

== ENCOUNTER → 2018-01-13 | Outpatient (CLI) | payer OTHER ==
[~2018-01-13] MED LIST changes: -ACET1TAB84 PO; -ASPEC325 PO; -COEN1CAP7 PO; +LISI40TA3 PO; -LSN40 PO; -NOVOLOG SQ; -NVLGI SC; +NVLGI/PEN SQ; +OXYC-57 PO; -PYRI100T2 PO; -RXC5 PO; -S-AD1TAB6 PO; -[UNRECOGNIZED DRUG - REMARK]
[2018-01-13 11:50] LABS: BLOOD UREA NITROGEN 12 mg/dl (7-18); CALCIUM 9.4 mg/dl (8.5-10.1); CARBON DIOXIDE 31 mmol/L (21-32); CREATININE 0.94 mg/dl (0.60-1.20); GLUCOSE 156 mg/dl (70-99); POTASSIUM 3.9 mmol/L (3.5-5.1); SODIUM 140 mmol/L (136-145)
--- NOTE | 2018-01-22 08:08 | CODING QUERY NO DIAGNOSIS ---
TREATMENT RENDERED WITHOUT A DIAGNOSIS To promote full compliance with coding requirements relating to patient care, physician participation is requested in all cases of paper products supervisor uncertainty. Please assist us with providing a diagnosis/symptom for the test(s) below: A diagnosis/symptom was not documented on your Order. A valid diagnosis/symptom is required to bill all insurances. Please remember that we are unable to code a diagnosis of rule out, probable, possible, questionable, or suspected. Tests that require a diagnosis: * BMP DIAGNOSIS: * ROUTINE ECG DIAGNOSIS: DATE OF SERVICE: 01/13/18 Provider Signature: Date: Thank you Phi Nance [facility] Information Management Once completed, please kindly fax back to [phone] For questions please call [phone]
== END | disposition home or self-care (01) ==
LOC: C.LAB 09:53
PROVIDERS: ATTEND Orthopaedic Surgery
DX: Z01.810 Encounter for preprocedural cardiovascular examination (principal); Z01.818 Encounter for other preprocedural examination; Z01.812 Encounter for preprocedural laboratory examination

== ENCOUNTER → 2018-01-22 | Day surgery (SDC) | payer OTHER ==
[2018-01-08 09:20] VITALS: BMI 50.0
--- NOTE | 2018-01-12 17:38 | PAT Medication Instructions ---
Service Date Jan 12, 2018. Current Home Medication List B-Complex Vitamins (Vitamin B Complex), 1 TAB PO QAM Cholecalciferol (Vitamin D3), 1 TAB PO QAM Ezetimibe (Zetia), 10 MG PO HS Hydrochlorothiazide (Hydrochlorothiazide), 12.5 MG PO QAM Insulin Aspart (Novolog Flexpen), 20 UNITS SQ TIDM Insulin Glargine (Lantus), 43 UNITS SC HS Lisinopril (Lisinopril), 40 MG PO QAM Multivitamin (Multivitamin), 2 TAB PO QAM Medication Instructions For Your Scheduled Surgery - Hold the following medications the morning of surgery: B-Complex Vitamins (Vitamin B Complex), 1 TAB PO QAM Cholecalciferol (Vitamin D3), 1 TAB PO QAM Hydrochlorothiazide (Hydrochlorothiazide), 12.5 MG PO QAM Insulin Aspart (Novolog Flexpen), 20 UNITS SQ TIDM Lisinopril (Lisinopril), 40 MG PO QAM Multivitamin (Multivitamin), 2 TAB PO QAM - Take the following medications as scheduled the night before surgery--THEN NOTHING TO EAT OR DRINK AFTER MIDNIGHT: Ezetimibe (Zetia), 10 MG PO HS Insulin Aspart (Novolog Flexpen), 20 UNITS SQ TIDM Insulin Glargine (Lantus), 43 UNITS SC HS If you have any questions please call us at [phone] or [phone] or [phone]
[2018-01-13 10:09] VITALS: Ht 162.6 cm; Wt 133.1 kg
[~2018-01-22] VITALS: Ht 162.6 cm; Wt 133.1 kg
[~2018-01-22] MED LIST changes: +ATROPINE SULFATE 0.1 MG/ML 5ML SYR IV PRN; +CEFAZOLIN 3000MG IV PUSH 22.5 ML IV SCH; +DEXAMETHASONE SOD INJ 4 MG/ML VIAL ONE; +FENTANYL CITRATE INJ 50 MCG/1 ML 2 ML VIAL ONE; +LACTATED RINGER'S 1000ML 1,000 ML IV SCH; +LIDOCAINE HCL 2% 2 ML VIAL (20MG/ML) ONE; +LIDOCAINE HCL 2% LOCAL 20 ML VIAL ONE; +MIDAZOLAM HCL 1 MG/ML 2ML VIAL ONE; +ONDANSETRON INJ 2 MG/ML 2 ML VIAL IV PRN; +ONDANSETRON INJ 2 MG/ML 2 ML VIAL ONE; +OXYCODONE/ACETAMINOPHEN 5-325 TAB PO PRN; +PROPOFOL IV EMULSION 10 MG/ML 20 ML VIAL ONE; +SODIUM CHLORIDE 0.9% 1000ML 1,000 ML IV SCH
--- NOTE | 2018-01-22 08:31 | [facility] Post Operative Brief Note ---
Immediate Operative Summary Operative Date Jan 22, 2018. Pre-Operative Diagnosis Right carpal tunnel syndrome Post-Operative Diagnosis Same as preop Procedure(s) Performed Right Carpal Tunnel Release Surgeon Dr. Maki Chemical Packager Surgeon(s) Lg Black PA-C Estimated Blood Loss 5 mL Findings Consistent with Post-Op Diagnosis Specimens None Anesthesia Type MAC
[2018-01-22 08:41] VITALS: TEMP 36.2
--- NOTE | 2018-01-22 08:43 | Discharge Instructions-SurgCtr ---
Discharge Instructions Date of Service Jan 22, 2018. Visit Reason for Visit: Right Carpal Tunnel Syndrome Discharge Discharge Diagnosis / Problem: SAME ABOVE Discharge Goals Goal(s): Decrease discomfort, Improve function Activity Recommendations Activity Limitations: as noted below Lifting Limitations: until after follow-up appointment Anesthesia . Post Anesthesia Instructions: If you have had General Anesthesia or IV Sedation: * Do not drive today. * Resume driving when surgeon permits. * Do not make important decisions or sign legal documents today. * Call surgeon for: 1. Temperature elevations greater than 101 degrees F. 2. Uncontrollable pain. 3. Excessive bleeding. 4. Persistent nausea and vomiting. 5. Medication intolerance (nausea, vomiting or rash). * For nausea and vomiting use only clear liquids such as: tea, soda, bouillon until nausea subsides, then gradually increase diet as tolerated. * If you have any concerns or questions, call your surgeon's office. If physician is unavailable and it is an emergency, call 911 or go to the nearest emergency room. . Instructions / Follow-Up Instructions / Follow-Up MEDICATIONS: * Resume previous medications unless instructed otherwise by your surgeon. * Always take pain medication on a full stomach or with food to avoid upset stomach. * Do not drink alcohol or drive while taking narcotics. * Ibuprofen or Tylenol may be taken if narcotic not needed. SPECIAL CARE INSTRUCTIONS: __ None _X_ Keep extremity elevated and iced x 48 hours; apply ice 20-30 minutes 8-10 times/day. May remove at night. __ Sling __24 hrs/day __ Remove at night __ Shoulder Immobilizer __ 24 hrs/day __ Remove at night _X_ Dressing __ Maintain until seen in office, may shower with plastic over site _X_ Remove dressings in 5 DAYS. MAY SHOWER SOONER IF COVERED WITH PLASTIC BAG _X_ Cover incisions with band-aids after showering __ Do not remove steri-strips Call physician if chills or temperature rises above 102 degrees or pain unrelieved by prescribed pain medications at . . Diet Recommendations Home Diet: no limitations Fluid Restriction: None Procedures Procedures Performed: Right Carpal Tunnel Release Pending Studies Studies pending at discharge: no Work Instructions Lifting Limitations: no more than 10 pounds Medical Emergencies . Who to Call and When: Medical Emergencies: If at any time you feel your situation is an emergency, please call 911 immediately. . Non-Emergent Contact Non-Emergency issues call your: Surgeon Call Non-Emergent contact if: your pain is not controlled, wound has increased drainage, wound has increased redness . . "Provider Documentation" section prepared by Lg Black. .
--- NOTE | 2018-01-22 08:45 | OPERATIVE REPORT ---
DATE OF OPERATION: 01/22/2018 PREOPERATIVE DIAGNOSIS: Carpal tunnel syndrome of the right wrist. POSTOPERATIVE DIAGNOSIS: Carpal tunnel syndrome of the right wrist. PROCEDURE: Open right carpal tunnel release. SURGEON: Dr. Aric Maki. REAL ESTATE APPRAISER SUPERVISOR: Lg Black PA-C, whose assistance was necessary for retraction and closure. ANESTHESIA: Local with sedation. COMPLICATIONS: None. CONDITION: Stable to PACU. INDICATIONS: Liz is a pleasant 67-year-old female who presented to my office with chronic increasing neuropathy of her right hand. EMG and clinical examination were diagnostic for carpal tunnel syndrome of the right wrist. After failing conservative treatment, she elected to undergo carpal tunnel release. OPERATION AND FINDINGS: On 01/22/2018, she arrived at [facility] for the above procedure. She was seen in preoperative holding area and the operative extremity was identified and signed. She was given a preoperative antibiotic, taken back to operating room and left on the litter. The right hand was then prepped and draped in sterile fashion. Time-out was done. The patient's operative extremity was properly identified. The surgical site was anesthetized with lidocaine. An incision was made directly over the transverse carpal ligament. Dissection was taken down through the palmar fascia with care not to disrupt the palmar cutaneous branch or the motor branch. The transverse carpal ligament was exposed. A knife and tenotomy scissors were used to completely transect the transverse carpal ligament. Care was taken to ensure complete proximal and distal resection. The wound was then irrigated. Hemostasis was obtained. The wound was then closed with 4-0 nylon suture in a mattress fashion. She was then placed in a soft dressing and taken to postanesthesia care unit in stable condition. She tolerated the procedure well. I attest to the content of the Intraoperative Record and any orders documented therein. Any exception s are noted below.
[2018-01-22 09:05] VITALS: BP 130/82; PULSE 73; O2SAT 95
--- NOTE | 2018-01-22 09:14 | Anesthesia Progress Nt - [facility] ---
Anesthesia Post Op Note Date & Time Jan 22, 2018 at 09:14 Vital Signs Pain Intensity: 0 Vital Signs Past 12 Hours Date Time Temp Pulse Resp B/P (MAP) Pulse Ox O2 Delivery O2 Flow Rate FiO2 01/22/18 09:05 73 16 130/82 (98) 95 Room Air 01/22/18 08:41 36.2 57 16 144/90 (108) 94 Room Air 01/22/18 07:24 36.2 68 18 147/78 (101) 97 Room Air Notes Mental Status: alert / awake / arousable, participated in evaluation Pt Amnestic to Procedure: Yes Nausea / Vomiting: adequately controlled Pain: adequately controlled Airway Patency, RR, SpO2: stable & adequate BP & HR: stable & adequate Hydration State: stable & adequate Anesthetic Complications: no major complications apparent
== END | disposition home or self-care (01) ==
LOC: X.SURG 07:11
PROVIDERS: ATTEND Orthopaedic Surgery
DX: G56.01 Carpal tunnel syndrome, right upper limb (principal); I10 Essential (primary) hypertension; E11.9 Type 2 diabetes mellitus without complications; E66.9 Obesity, unspecified; Z68.43 Body mass index [BMI] 50.0-59.9, adult; M19.90 Unspecified osteoarthritis, unspecified site; G47.33 Obstructive sleep apnea (adult) (pediatric); Z79.899 Other long term (current) drug therapy